=== PATIENT | male | born 1975 | race Caucasian/White ===

== ENCOUNTER 2017-02-24 08:52 | Emergency (ER) | payer BC ==
[2017-02-24 09:15] VITALS: BP 131/78
--- NOTE | 2017-02-24 09:17 | EDM.PDOC ---
ED HPI GENERAL MEDICAL PROBLEM - General Chief Complaint: General Stated Complaint: NECK PAIN Time Seen by Provider: 02/24/17 09:00 Source of Information: Reports: Patient, RN, RN Notes Reviewed History Limitations: Reports: No Limitations - History of Present Illness INITIAL COMMENTS - FREE TEXT/NARRATIVE: Patient presents to the emergency room at [facility] complaining of neck pain. According to the patient, around 11pm last night, he was walking down 3 steps from the house to the garage, slipped on the first step and fell backward. Patient states he did hit his head, but no LOC. Patient states he remembers the entire incident. He complains of neck pain, L > R. No previous injury or trauma. No previous neck surgeries. He states it hurts to turn his neck to the left. Patient denies any numbness, tingling, or paresthesia of any extremity. No radiation of the pain. Onset Date: 02/23/17 Onset Time: 23:00 Duration: Waxing/Waning Location: Reports: Neck Quality: Reports: Sharp Severity: Moderate Improves with: Reports: Rest Worsens with: Reports: Movement Context: Reports: Trauma Associated Symptoms: Reports: No Other Symptoms Neck Pain Score (Numeric/FACES): 8 - Related Data Allergies Allergy/AdvReac Type Severity Reaction Status Date / Time No Known Allergies Allergy Verified 02/24/17 09:09 Home Meds: Home Meds Naproxen 250 mg PO BID PRN 02/24/17 [History] Omeprazole 20 mg PO DAILY 02/24/17 [History] Valsartan/Hydrochlorothiazide [Diovan Hct 160-25 mg Tablet] 1 each PO DAILY [History] atorvaSTATin [Lipitor] 20 mg PO Q7D 02/24/17 [History] metFORMIN [Glucophage] 1,000 mg PO BID 02/24/17 [History] ED ROS GENERAL - Review of Systems Review Of Systems: See Below Constitutional: Denies: Fever, Chills, Weakness Respiratory: Denies: Shortness of Breath, Cough Cardiovascular: Denies: Chest Pain, Palpitations Musculoskeletal: Reports: Neck Pain, Muscle Pain, Muscle Stiffness Skin: Reports: No Symptoms Neurological: Reports: No Symptoms. Denies: Dizziness, Headache, Numbness, Paresthesia, Tingling ED EXAM, GENERAL - Physical Exam Exam: See Below Exam Limited By: No Limitations General Appearance: Alert, No Apparent Distress Eye Exam: Bilateral Eye: EOMI, Normal Inspection, PERRL Ears: Normal External Exam, Normal Canal, Normal TMs Ear Exam: Bilateral Ear: TM normal Nose: Normal Inspection, Normal Mucosa, No Blood Throat/Mouth: Normal Inspection, Normal Oropharynx, No Airway Compromise Head: Atraumatic, Normocephalic Neck: Limited Range of Motion, Tender Lateral (Left) Respiratory/Chest: No Respiratory Distress, Lungs Clear, Normal Breath Sounds Cardiovascular: Regular Rate, Rhythm Extremities: Normal Inspection Neurological: Alert, Oriented, Normal Cognition, No Motor/Sensory Deficits Skin Exam: Warm, Dry, Intact, Normal Color, No Rash Course - Vital Signs Last Recorded V/S: Last Vital Signs Temp 36.1 C 02/24/17 09:11 Pulse 81 02/24/17 09:11 Resp 16 02/24/17 09:11 BP 131/78 02/24/17 09:11 Pulse Ox 98 02/24/17 09:11 - Orders/Labs/Meds Orders: Active Orders 24 hr Category Date Time Status C-Spine [Cervical Spine 2V or 3V] [CR] Stat Exams 02/24/17 09:26 Taken Meds: Medications Discontinued Medications Generic Name Dose Route Start Last Admin Trade Name Freq PRN Reason Stop Dose Admin Orphenadrine Citrate 60 mg 02/24/17 09:27 02/24/17 09:33 Norflex IM 02/24/17 09:28 60 mg Q12H ONE Administration - Radiology Interpretation Free Text/Narrative:: No fracture seen on plain film; see scanned report in EMR Departure - Departure Time of Disposition: 10:45 Disposition: Home, Self-Care 01 Condition: good Clinical Impression: Neck muscle strain Qualifiers: Encounter type: initial encounter Qualified Code(s): S16.1XXA - Strain of muscle, fascia and tendon at neck level, initial encounter Fall down steps Qualifiers: Encounter type: initial encounter Qualified Code(s): W10.8XXA - Fall (on) (from ) other stairs and steps, initial encounter - Discharge Information Instructions: Cervical Sprain Referrals: Madyson Ann PRODUCER [Primary Care Provider] - Forms: ED Department Discharge Additional Instructions: 1. Stay well hydrated and rest 2. May alternate Tylenol/Advil as needed for discomfort 3. Alternate heat/ice to neck several times a day 4. Keep moving neck from side to side and up and down to work out the strain 5. Take muscle relaxers only when needed, these sometimes can make people feel drowsy 6. See your Primary as symptoms warrant - Problem List Review Problem List Initiated/Reviewed/Updated: Yes - My Orders Last 24 Hours: My Active Orders 02/24/17 09:26 C-Spine [Cervical Spine 2V or 3V] [CR] Stat - Assessment/Plan Last 24 Hours: My Active Orders 02/24/17 09:26 C-Spine [Cervical Spine 2V or 3V] [CR] Stat
[2017-02-24] MEDS ORDERED: Take Home: Cyclobenzaprine 10 MG Tab, 4 Tab Pack PO ONE (10:46)
== END 2017-02-24 11:10 | disposition home or self-care (01) ==
LOC: VM.ED 08:52
DX: S16.1XXA Strain of muscle, fascia and tendon at neck level, initial encounter (principal); Z79.899 Other long term (current) drug therapy; W10.8XXA Fall (on) (from) other stairs and steps, initial encounter
CPT/HCPCS: 72040; 96372; 99283; A9270; J2360

== ENCOUNTER 2017-04-27 18:34 | Emergency (ER) | payer BC ==
[2017-04-27] MEDS ORDERED: Propranolol 20 MG Tab PO ONE (19:07)
[2017-04-27] MEDS ORDERED: diphenhydrAMINE 50 MG/ML SDV IM ONE (19:09)
[2017-04-27] MEDS ORDERED: Propranolol 20 MG Tab ONE (19:19)
[2017-04-27 19:57] VITALS: BP 126/61
--- NOTE | 2017-04-27 20:27 | EDM.PDOC ---
[id number] 4d tremors Time Seen by Provider: 04/27/17 18:43 Source of Information: Reports: Patient, Family - History of Present Illness INITIAL COMMENTS - FREE TEXT/NARRATIVE: pt was on Risprerdal for anxiety for approx 3 weeks. However it was not working so his PCP stopped the medicine without tapering. Pt began having tremors 3 days ago. He was also given Ativan per his PCP and has been using that BID. Once taking that medication the past couple days the tremors dissipated to the point pt could continue doing things. However, tonight the tremors have progressed and the Ativan has not work. Pt states he is shaking out of his body he feels like. Duration: Getting Worse Location: Reports: Upper Extremity, Left, Upper Extremity, Right Quality: Reports: Other Severity: Moderate Improves with: Reports: None Worsens with: Reports: None Associated Symptoms: Reports: No Other Symptoms. Denies: Confusion, Chest Pain , Cough, cough w sputum, Diaphoresis, Fever/Chills, Headaches, Loss of Appetite , Malaise - Related Data Allergies Allergy/AdvReac Type Severity Reaction Status Date / Time No Known Allergies Allergy Verified 02/24/17 09:09 Home Meds: Home Meds Naproxen 250 mg PO BID PRN 02/24/17 [History] Omeprazole 20 mg PO DAILY 02/24/17 [History] Valsartan/Hydrochlorothiazide [Diovan Hct 160-25 mg Tablet] 1 each PO DAILY [History] atorvaSTATin [Lipitor] 20 mg PO Q7D 02/24/17 [History] metFORMIN [Glucophage] 1,000 mg PO BID 02/24/17 [History] Benztropine [Cogentin] 04/27/17 [History] LORazepam [Ativan] 04/27/17 [History] Propranolol [Inderal] 20 mg PO BID #3 tablet 04/27/17 [Rx] Propranolol [Inderal] 20 mg PO BID #3 tablet 04/27/17 [Rx] Past Medical History Cardiovascular History: Reports: High Cholesterol, Hypertension Endocrine/Metabolic History: Reports: Diabetes, Type II Social & Family History - Tobacco Use Smoking Status *Q: Current Every Day Smoker Years of Tobacco use: 30 Packs/Tins Daily: 1 - Alcohol Use Days Per Week of Alcohol Use: 1 Number of Drinks Per Day: 1 Total Drinks Per Week: 1 - Recreational Drug Use Recreational Drug Use: No ED ROS GENERAL - Review of Systems Review Of Systems: See Below Constitutional: Reports: No Symptoms HEENT: Reports: No Symptoms Respiratory: Reports: No Symptoms Cardiovascular: Reports: No Symptoms Endocrine: Reports: No Symptoms GI/Abdominal: Reports: No Symptoms : Reports: No Symptoms Musculoskeletal: Reports: Muscle Pain (tremors ), Muscle Stiffness, Other. Denies: No Symptoms, Neck Pain, Shoulder Pain, Arm Pain, Back Pain Skin: Reports: No Symptoms Neurological: Reports: No Symptoms Psychiatric: Reports: No Symptoms Hematologic/Lymphatic: Reports: No Symptoms Immunologic: Reports: No Symptoms ED EXAM, GENERAL - Physical Exam Exam: See Below Exam Limited By: No Limitations General Appearance: Alert, WD/WN, No Apparent Distress Nose: Normal Inspection, Normal Mucosa, No Blood Throat/Mouth: Normal Inspection Head: Atraumatic, Normocephalic Neck: Normal Inspection, Supple Respiratory/Chest: No Respiratory Distress, Lungs Clear, No Accessory Muscle Use Cardiovascular: Normal Peripheral Pulses, Regular Rate, Rhythm, No Edema, No JVD , No Murmur, No Rub GI/Abdominal: Normal Bowel Sounds, Soft, No Distention, No Abnormal Bruit Back Exam: Normal Inspection, Full Range of Motion Extremities: Arm Pain, Other (tremors-arms shaking profusely, resting tremor- arms coming off the bed 1 ft continuous due to tremors. Holding done arms manual does not slow tremors) Neurological: Alert, Oriented Psychiatric: Normal Affect Skin Exam: Warm, Dry, Intact Course - Vital Signs Last Recorded V/S: Last Vital Signs Temp 36.1 C 04/27/17 18:41 Pulse 84 04/27/17 19:57 Resp 16 04/27/17 19:57 BP 126/61 04/27/17 19:57 Pulse Ox 100 04/27/17 19:57 - Orders/Labs/Meds Meds: Medications Discontinued Medications Generic Name Dose Route Start Last Admin Trade Name Freq PRN Reason Stop Dose Admin Diphenhydramine HCl 40 mg 04/27/17 19:09 04/27/17 19:19 Benadryl IM 04/27/17 19:10 40 mg ONETIME ONE Administration Propranolol HCl 20 mg 04/27/17 19:07 04/27/17 19:31 Inderal PO 04/27/17 19:08 20 mg ONETIME ONE Administration Departure - Departure Time of Disposition: 20:40 Disposition: Home, Self-Care 01 Condition: Good Clinical Impression: Resting tremor Medication side effect Qualifiers: Encounter type: initial encounter Qualified Code(s): T88.7XXA - Unspecified adverse effect of drug or medicament, initial encounter - Discharge Information Prescriptions: Propranolol [Inderal] 20 mg PO BID #3 tablet Propranolol [Inderal] 20 mg PO BID #3 tablet Instructions: Tremor Referrals: Madyson Ann NP [Primary Care Provider] - 2 Days Forms: ED Department Discharge, ED Return to Work/School Form
== END 2017-04-27 20:40 | disposition home or self-care (01) ==
LOC: VM.ED 18:34
DX: R25.1 Tremor, unspecified (principal); T88.7XXA Unspecified adverse effect of drug or medicament, initial encounter; I10 Essential (primary) hypertension; E11.9 Type 2 diabetes mellitus without complications; F17.210 Nicotine dependence, cigarettes, uncomplicated; Z79.84 Long term (current) use of oral hypoglycemic drugs; Z79.899 Other long term (current) drug therapy; E78.00 Pure hypercholesterolemia, unspecified
CPT/HCPCS: 96372; 99283; A9270; J1200

== ENCOUNTER 2019-10-05 12:18 | Emergency (ER) | payer BC ==
[2019-10-05 12:38] VITALS: BP 135/80; PULSE 101
[2019-10-05 13:11] LABS: BUPRENORPHINE,URINE NEGATIVE (NEGATIVE); MARIJUANA,URINE NEGATIVE (NEGATIVE); METHYLENEDIOXYMETHAMP,UR NEGATIVE (NEGATIVE); PHENCYCLIDINE,URINE NEGATIVE (NEGATIVE)
[2019-10-05 13:34] LABS: CHLORIDE,CL 96 mmol/L (98-107); SODIUM,NA 137 mmol/L (136-145)
[2019-10-05 13:36] LABS: ANION GAP 19.5 mmol/L (10-20)
--- NOTE | 2019-10-05 13:37 | EDM.PDOC ---
ED HPI GENERAL MEDICAL PROBLEM - General Chief Complaint: Behavioral/Psych Stated Complaint: ER VISIT Time Seen by Provider: 10/05/19 12:30 Source of Information: Reports: Patient, Police - History of Present Illness INITIAL COMMENTS - FREE TEXT/NARRATIVE: Real is a 43 y/o male who is brought to the ER by police for suicidal ideation and an intentional overdose. Apparently he has been feeling quite down and depressed the last few weeks and over the holidays. The last 3 days he has not eaten at all and reports that "he hit rock bottom again". He called into work today and was [place] when he took #6-Lorazepam 1mg tablets and #3-Hydroxyzine 25mg tablets. He then texted a niece that he had done it and that he was feeling like hurting himself and she called 911 and the police found him and brought him to the ER. The ingestion of meds was estimated to be about 1 1/2 hours prior to arrival to the ER or about 1045 today. The patient reports that he had a previous suicidal attempt with a gun and he had considered shooting himself, but he never loaded the gun. This was a few years ago and he was admitted to a behavioral health facility in [place]. He was been on antidepressants, but admits that he has been taking them irregularly lately. - Related Data Allergies Allergy/AdvReac Type Severity Reaction Status Date / Time No Known Allergies Allergy Verified 02/24/17 09:09 Home Meds: Home Meds Omeprazole 20 mg PO DAILY 02/24/17 [History] Valsartan/Hydrochlorothiazide [Diovan Hct 160-25 mg Tablet] 1 each PO DAILY [History] atorvaSTATin [Lipitor] 20 mg PO Q2D 02/24/17 [History] metFORMIN [Glucophage] 1,000 mg PO BID 02/24/17 [History] LORazepam [Ativan] 1 mg PO Q12H PRN 04/27/17 [History] ARIPiprazole [Abilify] 5 mg PO DAILY 10/05/19 [History] Montelukast [Singulair] 10 mg PO DAILY 10/05/19 [History] OLANZapine [ZyPREXA] 5 mg PO DAILY 10/05/19 [History] buPROPion HCl [Wellbutrin Xl] 150 mg PO DAILY 10/05/19 [History] hydrOXYzine HCL [Atarax] 25 mg PO BID 10/05/19 [History] Past Medical History Cardiovascular History: Reports: High Cholesterol, Hypertension Psychiatric History: Reports: Depression, Psych Hospitalization(s) ([place]- Suicidal Ideation) Endocrine/Metabolic History: Reports: Diabetes, Type II Social & Family History - Tobacco Use Smoking Status *Q: Current Every Day Smoker Years of Tobacco use: 20 Packs/Tins Daily: 1 - Alcohol Use Alcohol Use History: No - Recreational Drug Use Recreational Drug Use: No Drug Use in Last 12 Months: No Review of Systems - Review of Systems Review Of Systems: See Below Constitutional: Reports: No Symptoms Eyes: Reports: No Symptoms Ears: Reports: No Symptoms Nose: Reports: No Symptoms Mouth/Throat: Reports: No Symptoms Respiratory: Reports: No Symptoms Cardiovascular: Reports: No Symptoms GI/Abdominal: Reports: No Symptoms Genitourinary: Reports: No Symptoms Musculoskeletal: Reports: No Symptoms Skin: Reports: No Symptoms Neurological: Reports: No Symptoms Psychiatric: Reports: Depression, Suicidal Ideation ED EXAM, GENERAL - Physical Exam Exam: See Below General Appearance: Alert, WD/WN, No Apparent Distress, Other (Adult male, quiet and appears to be a bit down. He is sitting quietly in the exam room adn cooperative with staff. His clothes are bit dirty and he appears a bit unkept.) Ears: Normal External Exam, Normal Canal, Hearing Grossly Normal Nose: Normal Inspection, Normal Mucosa, No Blood Throat/Mouth: Normal Inspection, Normal Lips, Normal Teeth, Normal Gums, Normal Oropharynx, Normal Voice Head: Atraumatic, Normocephalic Neck: Supple, Non-Tender Respiratory/Chest: No Respiratory Distress, Lungs Clear, Normal Breath Sounds, No Accessory Muscle Use, Chest Non-Tender GI/Abdominal: Normal Bowel Sounds, Soft, Non-Tender (Male) Exam: Deferred Rectal (Males) Exam: Deferred Back Exam: Normal Inspection Extremities: Normal Inspection, Non-Tender, No Pedal Edema, Normal Capillary Refill Neurological: Alert, Oriented, CN II-XII Intact, Normal Cognition, Normal Gait Psychiatric: Depressed Mood Skin Exam: Warm, Dry, Intact, Normal Color Lymphatic: No Adenopathy EKG INTERPRETATION EKG Date: 10/05/19 Time: 12:36 Rhythm: NSR Rate (Beats/Min): 96 [place]: Normal P-Wave: Present QRS: Normal ST-T: Normal EKG Interpretation Comments: Sinus Rhythm Course - Vital Signs Text/Narrative:: The patient was seen by the LEAD DATA ENTRY OPERATOR on arrival. Labs and EKG were done. Report received from law enforcement. 1325 Poison Control contacted and case presented. No further recommendations at this time. [facility] in [place] Screener contacted to present patient for possible admission. 1400 Screener from [place] returns call to ER and is assessing patient. 1435 Notified by Jagjit at [facility] in [place] that patient is appropriate for inpatient admission and accepted. Involuntary hold placed. Patient left the ER in stable condition with law enforcement. Last Recorded V/S: Last Vital Signs Temp 37.1 C 10/05/19 12:18 Pulse 101 H 10/05/19 12:18 Resp 16 10/05/19 12:18 BP 135/80 10/05/19 12:18 Pulse Ox 95 10/05/19 12:18 - Orders/Labs/Meds Orders: Active Orders 24 hr Category Date Time Status EKG Documentation Completion [RC] STAT Care 10/05/19 12:39 Active SALICYLATE [REF] Stat Lab 10/05/19 12:50 Received Labs: Laboratory Tests 10/05/19 10/05/19 10/05/19 Range/Units 12:50 12:50 12:57 WBC 9.9 (4.0-10.0) x10^3/uL RBC 6.42 H (4.5-6.0) x10^6/uL Hgb 20.2 H (14.0-18.0) g/dL Hct 56.4 H (40.0-52.0) % MCV 87.9 (78.0-93.0) fL MCH 31.5 (26.0-32.0) pg MCHC 35.8 (32.0-36.0) g/dL RDW Coeff of Enrique 12.6 (10.0-15.0) % Plt Count 178 (130-400) x10^3/uL Neut % (Auto) 75.0 (50.0-80.0) % Lymph % (Auto) 18.2 L (25.0-50.0) % [place] % (Auto) 6.2 (2.0-11.0) % Eos % (Auto) 0.2 (0.0-4.0) % Baso % (Auto) 0.4 (0.2-1.2) % Sodium 137 (136-145) mmol/L Potassium 3.5 (3.5-5.1) mmol/L Chloride 96 L (98-107) mmol/L Carbon Dioxide 25 (21-32) mmol/L Anion Gap 19.5 (10-20) mmol/L BUN 10 (7-18) mg/dL Creatinine 1.0 (0.70-1.30) mg/dL Est Cr Clr Drug Dosing TNP Estimated GFR (MDRD) > 60 Glucose 186 H (74-106) mg/dL Calcium 9.7 (8.5-10.1) mg/dL Corrected Calcium 9.78 (8.5-10.1) mg/dL Total Bilirubin 1.0 (0.2-1.0) mg/dL AST 18 (15-37) U/L ALT 28 (16-63) U/L Alkaline Phosphatase 120 H (46-116) U/L Total Protein 8.4 H (6.4-8.2) g/dL Albumin 3.9 (3.4-5.0) g/dL Globulin 4.5 Albumin/Globulin Ratio 0.87 TSH, Ultra Sensitive 2.728 (0.358-3.74) uIU/mL Urine Color Yellow (YELLOW) Urine Appearance Slightly cloudy H (CLEAR) Urine pH 5.5 (5.0-8.0) Ur Specific [place] 1.020 Urine Protein >=300 H (NEGATIVE) mg/dL Urine Glucose (UA) Negative (NEGATIVE) mg/dL Urine Ketones Negative (NEGATIVE) mg/dL Urine Occult Blood Trace-lysed H (NEGATIVE) Urine Nitrite Negative (NEGATIVE) Urine Bilirubin Negative (NEGATIVE) Urine Urobilinogen 0.2 (0.2) EU/dL Ur Leukocyte Esterase Negative (NEGATIVE) Urine RBC 5-10 H (NOT SEEN) /HPF Urine WBC 0-5 (NOT SEEN) /HPF Ur Squamous Epith Cells Many H (NEGATIVE) /HPF Urine Bacteria Few H (NEGATIVE) /HPF Urine Mucus Moderate H (NEGATIVE) /LPF Urine Opiates Screen (NEGATIVE) Ur Buprenorphine Scrn (NEGATIVE) Ur Oxycodone Screen (NEGATIVE) Ur EDDP (Meth Metab) (NEGATIVE) Urine Methadone Screen (NEGATIVE) Acetaminophen 0 L (10-30) ug/ml Ur Barbituates Screen (NEGATIVE) Ur Tricyclics Screen (NEGATIVE) Ur Phencyclidine Scrn (NEGATIVE) Ur Amphetamines Screen (NEGATIVE) U Methamphetamines Scrn (NEGATIVE) Urine MDMA Screen (NEGATIVE) U Benzodiazepines Scrn (NEGATIVE) Urine Cocaine Screen (NEGATIVE) U Marijuana (THC) Screen (NEGATIVE) Ethyl Alcohol 3 (0-3) mg/dL 10/05/19 Range/Units 12:57 WBC (4.0-10.0) x10^3/uL RBC (4.5-6.0) x10^6/uL Hgb (14.0-18.0) g/dL Hct (40.0-52.0) % MCV (78.0-93.0) fL MCH (26.0-32.0) pg MCHC (32.0-36.0) g/dL RDW Coeff of Enrique (10.0-15.0) % Plt Count (130-400) x10^3/uL Neut % (Auto) (50.0-80.0) % Lymph % (Auto) (25.0-50.0) % [place] % (Auto) (2.0-11.0) % Eos % (Auto) (0.0-4.0) % Baso % (Auto) (0.2-1.2) % Sodium (136-145) mmol/L Potassium (3.5-5.1) mmol/L Chloride (98-107) mmol/L Carbon Dioxide (21-32) mmol/L Anion Gap (10-20) mmol/L BUN (7-18) mg/dL Creatinine (0.70-1.30) mg/dL Est Cr Clr Drug Dosing Estimated GFR (MDRD) Glucose (74-106) mg/dL Calcium (8.5-10.1) mg/dL Corrected Calcium (8.5-10.1) mg/dL Total Bilirubin (0.2-1.0) mg/dL AST (15-37) U/L ALT (16-63) U/L Alkaline Phosphatase (46-116) U/L Total Protein (6.4-8.2) g/dL Albumin (3.4-5.0) g/dL Globulin Albumin/Globulin Ratio TSH, Ultra Sensitive (0.358-3.74) uIU/mL Urine Color (YELLOW) Urine Appearance (CLEAR) Urine pH (5.0-8.0) Ur Specific [place] Urine Protein (NEGATIVE) mg/dL Urine Glucose (UA) (NEGATIVE) mg/dL Urine Ketones (NEGATIVE) mg/dL Urine Occult Blood (NEGATIVE) Urine Nitrite (NEGATIVE) Urine Bilirubin (NEGATIVE) Urine Urobilinogen (0.2) EU/dL Ur Leukocyte Esterase (NEGATIVE) Urine RBC (NOT SEEN) /HPF Urine WBC (NOT SEEN) /HPF Ur Squamous Epith Cells (NEGATIVE) /HPF Urine Bacteria (NEGATIVE) /HPF Urine Mucus (NEGATIVE) /LPF Urine Opiates Screen Negative (NEGATIVE) Ur Buprenorphine Scrn Negative (NEGATIVE) Ur Oxycodone Screen Negative (NEGATIVE) Ur EDDP (Meth Metab) Negative (NEGATIVE) Urine Methadone Screen Negative (NEGATIVE) Acetaminophen (10-30) ug/ml Ur Barbituates Screen Negative (NEGATIVE) Ur Tricyclics Screen Negative (NEGATIVE) Ur Phencyclidine Scrn Negative (NEGATIVE) Ur Amphetamines Screen Negative (NEGATIVE) U Methamphetamines Scrn Negative (NEGATIVE) Urine MDMA Screen Negative (NEGATIVE) U Benzodiazepines Scrn Positive H (NEGATIVE) Urine Cocaine Screen Negative (NEGATIVE) U Marijuana (THC) Screen Negative (NEGATIVE) Ethyl Alcohol (0-3) mg/dL Departure - Departure Time of Disposition: 14:44 Disposition: DC/Tfer to Psych Hosp/Unit 65 Clinical Impression: Intentional benzodiazepine overdose, Suicidal ideation, Depressive disorder - Discharge Information *PRESCRIPTION DRUG MONITORING PROGRAM REVIEWED*: Not Applicable *COPY OF PRESCRIPTION DRUG MONITORING REPORT IN PATIENT ANGELICA: Not Applicable Referrals: Madyson Ann NP [Primary Care Provider] - Forms: ED Department Discharge Additional Instructions: -Transfer to [facility] in [place] via law enforcement -Involuntary hold in place upon discharge Sepsis Event Note - Evaluation Sepsis Screening Result: No Definite Risk - Focused Exam Vital Signs: Vital Signs Temp Pulse Resp BP Pulse Ox 10/05/19 12:18 37.1 C 101 H 16 135/80 95 Date Exam was Performed: 10/05/19 Time Exam was Performed: 14:43 - My Orders Last 24 Hours: My Active Orders 10/05/19 12:39 EKG Documentation Completion [RC] STAT 10/05/19 12:50 SALICYLATE [REF] Stat - Assessment/Plan Last 24 Hours: My Active Orders 10/05/19 12:39 EKG Documentation Completion [RC] STAT 10/05/19 12:50 SALICYLATE [REF] Stat
[2019-10-05 13:40] LABS: ACETAMINOPHEN 0 ug/ml (10-30)
== END 2019-10-05 15:03 ==
LOC: VM.ED 12:18
DX: T42.4X2A Poisoning by benzodiazepines, intentional self-harm, initial encounter (principal); T43.592A Poisoning by other antipsychotics and neuroleptics, intentional self-harm, initial encounter; F32.9 Major depressive disorder, single episode, unspecified; I10 Essential (primary) hypertension; E11.9 Type 2 diabetes mellitus without complications; E78.00 Pure hypercholesterolemia, unspecified; F17.210 Nicotine dependence, cigarettes, uncomplicated; Z79.84 Long term (current) use of oral hypoglycemic drugs; Z79.899 Other long term (current) drug therapy
CPT/HCPCS: 36415; 80053; 80305-QW; 81001; 84443; 85025; 93005; 99285-25; G0480